=== PATIENT | female | born 1970 | race Caucasian/White ===

== ENCOUNTER 2021-07-19 11:10 | Emergency (ER) | payer OTHER ==
[~2021-07-19] VITALS: Ht 170.2 cm; Wt 102.1 kg
--- NOTE | 2021-07-19 11:20 | NUR ---
BIB ambulance via stretcher was able to transfer to our [facility] with assistance. C/O (L) knee pain after hearing "a pop" today approx 1030. Denies any trauma.
[2021-07-19] MEDS ORDERED: HYDROCODONE/APAP 10-325 MG TABLET PO ONE (12:45)
[2021-07-19] MEDS ORDERED: HYDROCODONE/APAP 10-325 MG TABLET ONE (12:54)
--- NOTE | 2021-07-19 13:45 | NUR ---
Pt ambulated to restroom with assistance. States slight improvement in pain before having to ambulate to restroom, but now pain is about 6/10.
--- NOTE | 2021-07-19 14:05 | NUR ---
Provider aware of elevated BP readings. Pt denies Hx of HTN. Pt will F/U with PCP about BP concern. Pt denies any blurred vision, dizziness, PAULSON at this time. Will place pt on knee immobilizer per provider order. Pt states having her own crutches. Still reviewd crutch training with pt.
[2021-07-19] MEDS ORDERED: NAPR-1164 PO (14:45)
[2021-07-19 15:12] VITALS: BP 171/82
== END 2021-07-19 15:10 | disposition home or self-care (01) ==
LOC: ER 11:13
DX: M25.562 Pain in left knee (principal); Z88.2 Allergy status to sulfonamides; Z88.1 Allergy status to other antibiotic agents
CPT/HCPCS: A4663

== ENCOUNTER 2024-04-18 14:00 | Emergency (ER) | payer OTHER ==
[~2024-04-18] VITALS: Ht 162.6 cm; Wt 131.5 kg
[~2024-04-18 14:00] MED LIST: NAPR-1164 PO
[2024-04-18 14:50] LABS: BASOPHILS % (AUTO) 0.5 % (0.0-2.0); EOSINOPHILS # (AUTO) 0.1 K/uL (0.0-0.7); EOSINOPHILS % (AUTO) 0.8 % (0.0-7.0); HEMATOCRIT 41.3 % (31.2-41.9); HEMOGLOBIN 13.2 g/dL (10.9-14.3); LYMPHOCYTES # (AUTO) 1.6 K/uL (0.8-4.8); LYMPHOCYTES % (AUTO) 16.3 % (20.5-51.5); MEAN CORPUSCULAR HEMOGLOBIN 25.1 uug (24.7-32.8); MEAN CORPUSCULAR HGB CONC 32 g/dL (32.3-35.6); MEAN CORPUSCULAR VOLUME 78.4 fL (75.5-95.3); MONOCYTES # (AUTO) 0.7 K/uL (0.1-1.30); MONOCYTES % (AUTO) 7.1 % (0.0-11.0); NEUTROPHILS # (AUTO) 7.4 K/uL (1.8-8.9); NEUTROPHILS % (AUTO) 75.3 % (38.5-71.5); PLATELET COUNT (AUTO) 331 K/uL (179-408); RED BLOOD CELL COUNT(AUTO) 5.27 MIL/uL (3.63-4.92); RED CELL DISTRIBUTION WIDTH 16.1 % (12.3-17.7); WHITE BLOOD COUNT (AUTO) 9.8 K/uL (3.8-11.8)
[2024-04-18 14:51] LABS: DIFFERENTIAL COMMENT 1
[2024-04-18 15:01] LABS: CALCIUM 9.4 mg/dL (8.5-10.1); CREATININE 1.1 mg/dL (0.6-1.3); POTASSIUM 3.8 mmol/L (3.5-5.1)
[2024-04-18] MEDS: IV NORMAL SALINE 1000 ML BAG IV ONE (15:06)
[2024-04-18 15:07] LABS: BILIRUBIN,DIRECT 0.1 mg/dL (0.0-0.2); BILIRUBIN,TOTAL 0.4 mg/dL (0.2-1.0); TOTAL PROTEIN, SERUM 6.8 g/dL (6.4-8.2)
[2024-04-18] MEDS ORDERED: LOSA100T3 (15:11)
[2024-04-18] MEDS ORDERED: METF-494 (15:11)
[2024-04-18 15:53] LABS: *BLOOD, URINE NEGATIVE (NEGATIVE); *CLARITY,URINE CLEAR (CLEAR); *COLOR,URINE DARK YELLOW (YELLOW); *KETONES,URINE 1+ (NEGATIVE); *PROTEIN,URINE 2+ (NEGATIVE); *UROBILINOGEN,URINE 0.2 E.U./dl (NORMAL); LEUKOCYTE ESTERASE ,URINE NEGATIVE (NEGATIVE); NITRITE, URINE NEGATIVE (NEGATIVE); PH,URINE 5.5 (5.0-8.0); UGLUCOSE NEGATIVE (NEGATIVE)
[2024-04-18 15:54] LABS: *BILIRUBIN,URIN 2+ (NEGATIVE)
[2024-04-18 16:09] LABS: BACTERIA,URINE FEW /HPF (NONE SEEN); CALCIUM OXALATE CRYSTALS,UR MODERATE /HPF (NONE SEEN); RBC,URINE 0-3 /HPF (0-3); SQUAMOUS EPITHELIAL CELL,UR MODERATE /HPF (NONE SEEN); WBC,URINE 0-3 /HPF (0-3)
[2024-04-18 16:10] LABS: MUCUS,URINE MANY /LPF (0-FEW); YEAST,URINE RARE /HPF (NONE SEEN)
[2024-04-18] MEDS ORDERED: AMOX-430 PO (16:37)
[2024-04-18 16:52] VITALS: BP 113/71; O2SAT 100
== END 2024-04-18 16:57 | disposition home or self-care (01) ==
LOC: ER 14:00
DX: R19.00 Intra-abdominal and pelvic swelling, mass and lump, unspecified site (principal); E11.9 Type 2 diabetes mellitus without complications; I11.9 Hypertensive heart disease without heart failure; Z79.890 Hormone replacement therapy; Z88.1 Allergy status to other antibiotic agents; Z88.2 Allergy status to sulfonamides; Z88.7 Allergy status to serum and vaccine
CPT/HCPCS: 99284; 74176; 96360; 76856; 80076; 80048; 81001; 83690; 85025; 36415; J7040; A4606; A4663